=== PATIENT | female | born 1950 | race Caucasian/White ===

== ENCOUNTER 2020-08-08 09:27 | Outpatient (CLI) | payer MEDICARE, MEDICAID | END 2020-08-08 09:28 | disposition home or self-care (01) | LOC: CSHWCC 09:27 | PROVIDERS: ATTEND Nurse Practitioner Family | DX: I87.332 Chronic venous hypertension (idiopathic) with ulcer and inflammation of left lower extremity (principal); I87.311 Chronic venous hypertension (idiopathic) with ulcer of right lower extremity; I87.2 Venous insufficiency (chronic) (peripheral); E11.622 Type 2 diabetes mellitus with other skin ulcer; L97.812 Non-pressure chronic ulcer of other part of right lower leg with fat layer exposed; L97.222 Non-pressure chronic ulcer of left calf with fat layer exposed; T81.30XD Disruption of wound, unspecified, subsequent encounter; E11.40 Type 2 diabetes mellitus with diabetic neuropathy, unspecified; I89.0 Lymphedema, not elsewhere classified; R60.0 Localized edema; E11.65 Type 2 diabetes mellitus with hyperglycemia; F42.4 Excoriation (skin-picking) disorder; I25.10 Atherosclerotic heart disease of native coronary artery without angina pectoris; N28.89 Other specified disorders of kidney and ureter; E66.01 Morbid (severe) obesity due to excess calories | CPT/HCPCS: 11042; 29581; 87070; 87077; 87186; 87205; 99205; G0463 ==

== ENCOUNTER 2020-08-24 10:44 | Outpatient (CLI) | payer MEDICARE, MEDICAID | END 2020-08-24 10:45 | disposition home or self-care (01) | LOC: CSHWCC 10:44 | PROVIDERS: ATTEND Nurse Practitioner Family | DX: I87.311 Chronic venous hypertension (idiopathic) with ulcer of right lower extremity (principal); L97.812 Non-pressure chronic ulcer of other part of right lower leg with fat layer exposed; I87.332 Chronic venous hypertension (idiopathic) with ulcer and inflammation of left lower extremity; L97.222 Non-pressure chronic ulcer of left calf with fat layer exposed; R60.0 Localized edema; T81.30XA Disruption of wound, unspecified, initial encounter; E11.40 Type 2 diabetes mellitus with diabetic neuropathy, unspecified; E11.65 Type 2 diabetes mellitus with hyperglycemia; E11.622 Type 2 diabetes mellitus with other skin ulcer; E11.628 Type 2 diabetes mellitus with other skin complications; E66.01 Morbid (severe) obesity due to excess calories; F42.4 Excoriation (skin-picking) disorder; I10 Essential (primary) hypertension; I25.10 Atherosclerotic heart disease of native coronary artery without angina pectoris; I89.0 Lymphedema, not elsewhere classified; N28.89 Other specified disorders of kidney and ureter | CPT/HCPCS: 11042; 29581; 97139; G0463; 99214 ==

== ENCOUNTER 2020-09-10 08:59 | Outpatient (CLI) | payer MEDICARE, MEDICAID | END 2020-09-10 09:00 | disposition home or self-care (01) | LOC: CSHWCC 08:59 | PROVIDERS: ATTEND Nurse Practitioner Family | DX: T81.30XD Disruption of wound, unspecified, subsequent encounter (principal); I87.332 Chronic venous hypertension (idiopathic) with ulcer and inflammation of left lower extremity; I87.311 Chronic venous hypertension (idiopathic) with ulcer of right lower extremity; E11.622 Type 2 diabetes mellitus with other skin ulcer; L97.812 Non-pressure chronic ulcer of other part of right lower leg with fat layer exposed; L97.222 Non-pressure chronic ulcer of left calf with fat layer exposed; E11.628 Type 2 diabetes mellitus with other skin complications; E66.01 Morbid (severe) obesity due to excess calories; F42.4 Excoriation (skin-picking) disorder; I10 Essential (primary) hypertension; I25.10 Atherosclerotic heart disease of native coronary artery without angina pectoris; I87.2 Venous insufficiency (chronic) (peripheral); I89.0 Lymphedema, not elsewhere classified; N28.89 Other specified disorders of kidney and ureter ==

== ENCOUNTER 2020-12-14 08:34 | Outpatient (CLI) | payer MEDICARE, MEDICAID | END 2020-12-14 08:35 | disposition home or self-care (01) | LOC: CSHWCC 08:34 | PROVIDERS: ATTEND Nurse Practitioner Family | DX: I87.311 Chronic venous hypertension (idiopathic) with ulcer of right lower extremity (principal); E11.40 Type 2 diabetes mellitus with diabetic neuropathy, unspecified; E11.65 Type 2 diabetes mellitus with hyperglycemia; E11.622 Type 2 diabetes mellitus with other skin ulcer; E11.628 Type 2 diabetes mellitus with other skin complications; E66.01 Morbid (severe) obesity due to excess calories; F42.4 Excoriation (skin-picking) disorder; I10 Essential (primary) hypertension; I25.10 Atherosclerotic heart disease of native coronary artery without angina pectoris; I87.2 Venous insufficiency (chronic) (peripheral); L97.812 Non-pressure chronic ulcer of other part of right lower leg with fat layer exposed; I87.332 Chronic venous hypertension (idiopathic) with ulcer and inflammation of left lower extremity; L97.222 Non-pressure chronic ulcer of left calf with fat layer exposed; I89.0 Lymphedema, not elsewhere classified; N28.89 Other specified disorders of kidney and ureter; R60.0 Localized edema; S71.102A Unspecified open wound, left thigh, initial encounter; T81.30XA Disruption of wound, unspecified, initial encounter | CPT/HCPCS: 11042; 99214; G0463 ==

== ENCOUNTER 2021-02-25 07:48 | Outpatient (CLI) | payer MEDICARE, MEDICAID | END 2021-02-25 07:49 | disposition home or self-care (01) | LOC: CSHWCC 07:48 | PROVIDERS: ATTEND Nurse Practitioner Family | DX: I87.333 Chronic venous hypertension (idiopathic) with ulcer and inflammation of bilateral lower extremity (principal); I87.2 Venous insufficiency (chronic) (peripheral); E11.622 Type 2 diabetes mellitus with other skin ulcer; L97.222 Non-pressure chronic ulcer of left calf with fat layer exposed; L97.812 Non-pressure chronic ulcer of other part of right lower leg with fat layer exposed; S41.001D Unspecified open wound of right shoulder, subsequent encounter; S71.002D Unspecified open wound, left hip, subsequent encounter; S71.102D Unspecified open wound, left thigh, subsequent encounter; I89.0 Lymphedema, not elsewhere classified; R60.0 Localized edema; E11.628 Type 2 diabetes mellitus with other skin complications; E11.40 Type 2 diabetes mellitus with diabetic neuropathy, unspecified; E11.65 Type 2 diabetes mellitus with hyperglycemia; I25.10 Atherosclerotic heart disease of native coronary artery without angina pectoris; F42.4 Excoriation (skin-picking) disorder; N28.89 Other specified disorders of kidney and ureter; E66.01 Morbid (severe) obesity due to excess calories | CPT/HCPCS: 11042; 97139; G0463; 99214 ==

== ENCOUNTER 2021-03-27 09:06 | Outpatient (CLI) | payer MEDICARE, MEDICAID | END 2021-03-27 09:07 | disposition home or self-care (01) | LOC: CSHWCC 09:06 | PROVIDERS: ATTEND Nurse Practitioner Family | DX: I87.333 Chronic venous hypertension (idiopathic) with ulcer and inflammation of bilateral lower extremity (principal); I87.2 Venous insufficiency (chronic) (peripheral); E11.622 Type 2 diabetes mellitus with other skin ulcer; L97.222 Non-pressure chronic ulcer of left calf with fat layer exposed; L97.812 Non-pressure chronic ulcer of other part of right lower leg with fat layer exposed; S41.001A Unspecified open wound of right shoulder, initial encounter; S71.002A Unspecified open wound, left hip, initial encounter; S71.102A Unspecified open wound, left thigh, initial encounter; I89.0 Lymphedema, not elsewhere classified; R60.0 Localized edema; E11.40 Type 2 diabetes mellitus with diabetic neuropathy, unspecified; E11.65 Type 2 diabetes mellitus with hyperglycemia; E11.628 Type 2 diabetes mellitus with other skin complications; F42.4 Excoriation (skin-picking) disorder; I25.10 Atherosclerotic heart disease of native coronary artery without angina pectoris; N28.89 Other specified disorders of kidney and ureter; E66.01 Morbid (severe) obesity due to excess calories ==

== ENCOUNTER 2021-04-29 08:53 | Outpatient (CLI) | payer MEDICARE, MEDICAID | END 2021-04-29 08:54 | disposition home or self-care (01) | LOC: CSHWCC 08:53 | PROVIDERS: ATTEND Nurse Practitioner Family | DX: S71.102D Unspecified open wound, left thigh, subsequent encounter (principal); I87.331 Chronic venous hypertension (idiopathic) with ulcer and inflammation of right lower extremity; I87.332 Chronic venous hypertension (idiopathic) with ulcer and inflammation of left lower extremity; E11.622 Type 2 diabetes mellitus with other skin ulcer; L97.812 Non-pressure chronic ulcer of other part of right lower leg with fat layer exposed; L97.222 Non-pressure chronic ulcer of left calf with fat layer exposed; R60.0 Localized edema; E11.40 Type 2 diabetes mellitus with diabetic neuropathy, unspecified; E11.65 Type 2 diabetes mellitus with hyperglycemia; E11.628 Type 2 diabetes mellitus with other skin complications; E66.01 Morbid (severe) obesity due to excess calories; F42.4 Excoriation (skin-picking) disorder; I10 Essential (primary) hypertension; I25.10 Atherosclerotic heart disease of native coronary artery without angina pectoris; I87.2 Venous insufficiency (chronic) (peripheral); I89.0 Lymphedema, not elsewhere classified; N28.89 Other specified disorders of kidney and ureter ==

== ENCOUNTER 2021-09-02 08:57 | Outpatient (CLI) | payer MEDICARE, MEDICAID | END 2021-09-02 08:58 | disposition home or self-care (01) | LOC: CSHWCC 08:57 | PROVIDERS: ATTEND Nurse Practitioner Family | DX: I87.332 Chronic venous hypertension (idiopathic) with ulcer and inflammation of left lower extremity (principal); L97.321 Non-pressure chronic ulcer of left ankle limited to breakdown of skin; S91.105D Unspecified open wound of left lesser toe(s) without damage to nail, subsequent encounter; S71.102D Unspecified open wound, left thigh, subsequent encounter; R60.0 Localized edema | CPT/HCPCS: 97139; G0463; 99214 ==

== ENCOUNTER 2021-10-01 10:34 | Outpatient (CLI) | payer MEDICARE, MEDICAID | END 2021-10-01 10:35 | disposition home or self-care (01) | LOC: CSHWCC 10:34 | PROVIDERS: ATTEND Nurse Practitioner Family | DX: I87.332 Chronic venous hypertension (idiopathic) with ulcer and inflammation of left lower extremity (principal); L97.321 Non-pressure chronic ulcer of left ankle limited to breakdown of skin; S91.105D Unspecified open wound of left lesser toe(s) without damage to nail, subsequent encounter; S71.102D Unspecified open wound, left thigh, subsequent encounter; R60.0 Localized edema | CPT/HCPCS: 29581 ==

== ENCOUNTER 2021-11-11 09:45 | Outpatient (CLI) | payer MEDICARE, MEDICAID | END 2021-11-11 09:46 | disposition home or self-care (01) | LOC: CSHWCC 09:45 | PROVIDERS: ATTEND Nurse Practitioner Family | DX: S91.105D Unspecified open wound of left lesser toe(s) without damage to nail, subsequent encounter (principal); I87.332 Chronic venous hypertension (idiopathic) with ulcer and inflammation of left lower extremity; L97.321 Non-pressure chronic ulcer of left ankle limited to breakdown of skin; R60.0 Localized edema ==

== ENCOUNTER 2021-12-10 14:15 | Outpatient (CLI) | payer MEDICARE, MEDICAID | END 2021-12-10 14:16 | disposition home or self-care (01) | LOC: CSHWCC 14:15 | PROVIDERS: ATTEND Nurse Practitioner Family | DX: S81.801D Unspecified open wound, right lower leg, subsequent encounter (principal); I87.332 Chronic venous hypertension (idiopathic) with ulcer and inflammation of left lower extremity; L97.321 Non-pressure chronic ulcer of left ankle limited to breakdown of skin; R60.0 Localized edema | CPT/HCPCS: 97139; G0463; 99215 ==

== ENCOUNTER 2021-12-26 09:55 | Outpatient (CLI) | payer MEDICARE, MEDICAID | END 2021-12-26 09:56 | disposition home or self-care (01) | LOC: CSHWCC 09:55 | PROVIDERS: ATTEND Preventive Medicine Undersea and Hyperbaric Medicine | DX: I87.332 Chronic venous hypertension (idiopathic) with ulcer and inflammation of left lower extremity (principal); L97.321 Non-pressure chronic ulcer of left ankle limited to breakdown of skin; S81.801D Unspecified open wound, right lower leg, subsequent encounter; S71.002D Unspecified open wound, left hip, subsequent encounter; R60.0 Localized edema | CPT/HCPCS: 36416; 87070; 87205 ==

== ENCOUNTER 2022-01-09 10:30 | Outpatient (CLI) | payer MEDICARE, MEDICAID | END 2022-01-09 10:31 | disposition home or self-care (01) | LOC: CSHWCC 10:30 | PROVIDERS: ATTEND Preventive Medicine Undersea and Hyperbaric Medicine | DX: S71.002D Unspecified open wound, left hip, subsequent encounter (principal); S31.829D Unspecified open wound of left buttock, subsequent encounter; I87.333 Chronic venous hypertension (idiopathic) with ulcer and inflammation of bilateral lower extremity; L97.321 Non-pressure chronic ulcer of left ankle limited to breakdown of skin; L97.812 Non-pressure chronic ulcer of other part of right lower leg with fat layer exposed ==

== ENCOUNTER 2022-02-20 08:10 | Outpatient (CLI) | payer MEDICARE, MEDICAID | END 2022-02-20 08:11 | disposition home or self-care (01) | LOC: CSHWCC 08:10 | PROVIDERS: ATTEND Preventive Medicine Undersea and Hyperbaric Medicine | DX: I87.333 Chronic venous hypertension (idiopathic) with ulcer and inflammation of bilateral lower extremity (principal); L97.321 Non-pressure chronic ulcer of left ankle limited to breakdown of skin; L97.812 Non-pressure chronic ulcer of other part of right lower leg with fat layer exposed; S31.829D Unspecified open wound of left buttock, subsequent encounter; S71.002D Unspecified open wound, left hip, subsequent encounter; S81.802D Unspecified open wound, left lower leg, subsequent encounter; R60.0 Localized edema | CPT/HCPCS: 97139; G0463; 99213 ==